=== PATIENT | male | born 1980 ===

== ENCOUNTER 2016-09-28 16:40 | Emergency (ER) | payer OTHER ==
[2016-09-28 16:40] VITALS: BMI 26.4
[2016-09-28 17:01] VITALS: BP 143/85; PULSE 95; RESP 18; TEMP 98.3; O2SAT 99
--- NOTE | 2016-09-28 17:39 | ED PDOC ---
HPI: Abdomen Time Seen by Provider: 09/28/16 17:05 Chief Complaint (Nursing): Abdominal Pain Chief Complaint (Provider): Generalized abdominal pain History Per: Patient History/Exam Limitations: no limitations Onset/Duration Of Symptoms: Days Outside of [place] travel?: No Current Symptoms Are (Timing): Still Present Location Of Pain/Discomfort: Diffuse, RLQ Quality Of Discomfort: Sharp, Burning Associated Symptoms: Nausea, Vomiting. denies: Fever, Chills Exacerbating Factors: None Alleviating Factors: None Last Bowel Movement: Today (Watery, no blood or mucous) Additional Complaint(s): Pt was seen in ER less than a week ago. Labs and CT reviewed and it was normal. Past Medical History Reviewed: Historical Data, Nursing Documentation, Vital Signs Vital Signs: Last Vital Signs Temp 98.3 F 09/28/16 16:58 Pulse 95 H 09/28/16 16:58 Resp 18 09/28/16 16:58 BP 143/85 09/28/16 16:58 Pulse Ox 99 09/28/16 17:40 - Medical History PMH: No Chronic Diseases - Surgical History Surgical History: No Surg Hx - Family History Family History: States: Unknown Family Hx - Living Arrangements Living Arrangements: With Family - Social History Current smoker - smoking cessation education provided: No - Immunization History Hx Tetanus Toxoid Vaccination: No Hx Influenza Vaccination: No Hx Pneumococcal Vaccination: No - Home Medications Home Medications: Ambulatory Orders Medication Instructions Recorded Ibuprofen [Motrin] 600 mg PO TID 7 Days 10/08/15 - Allergies Allergies/Adverse Reactions: Allergies Allergy/AdvReac Type Severity Reaction Status Date / Time No Known Allergies Allergy Verified 10/08/15 11:30 Review of Systems ROS Statement: Except As Marked, All Systems Reviewed And Found Negative Gastrointestinal: Positive for: Nausea, Vomiting, Abdominal Pain Physical Exam - Reviewed Nursing Documentation Reviewed: Yes Vital Signs Reviewed: Yes - Physical Exam Appears: Positive for: Well, Non-toxic, No Acute Distress Head Exam: Positive for: ATRAUMATIC, NORMAL INSPECTION, NORMOCEPHALIC Skin: Positive for: Normal Color, Warm, DRY Eye Exam: Positive for: Normal appearance ENT: Positive for: Normal ENT Inspection Neck: Positive for: Normal, Painless ROM Cardiovascular/Chest: Positive for: Regular Rate, Rhythm Respiratory: Positive for: CNT, Normal Breath Sounds Gastrointestinal/Abdominal: Positive for: Bowel Sounds, Soft, Tenderness ( Diffuse ). Negative for: Normal Exam Back: Positive for: Normal Inspection Extremity: Positive for: Normal ROM Neurologic/Psych: Positive for: Alert, Oriented - Laboratory Results Result Diagrams: 09/28/16 17:36 09/28/16 17:36 - ECG O2 Sat by Pulse Oximetry: 99 Medical Decision Making Medical Decision Making: Endorsed pending abdominal x-ray. Disposition - Clinical Impression Clinical Impression: Abdominal pain - Patient ED Disposition Is Patient to be Admitted: Transfer of Care - Disposition Disposition: Transfer of Care Disposition Time: 19:52 Condition: GOOD
[2016-09-28 17:45] LABS: BASO % 0.3 % (0.0-2.0); EOS % 0.7 % (0.0-4.0); HEMATOCRIT 39.9 % (35.0-51.0); LYMPH # 2.2 K/uL (1.0-4.3); LYMPH % 31.9 % (20.0-40.0); MEAN CELL VOLUME 94.2 fl (80.0-94.0); MEAN PLATELET VOLUME 7.9 fl (7.2-11.7); MONO # 0.6 K/uL (0.0-0.8); NEUT # 4.1 K/uL (1.8-7.0); NEUT % 58.1 % (50.0-75.0); NRBC % 0.1 % (0.0-0.0); RED CELL DISTRIBUTION WIDTH 12.3 % (11.5-14.5)
[2016-09-28 17:49] LABS: ALB/GLOB RATIO 1.4 (1.0-2.1); ALKALINE PHOSPHATASE 53 U/L (38-126); ALT/SGPT 37 U/L (21-72); AST/SGOT 29 U/L (17-59); BILIRUBIN,TOTAL 0.8 mg/dl (0.2-1.3); BLOOD UREA NITROGEN 17 mg/dl (9-20); CALCIUM 9.8 mg/dL (8.4-10.2); CARBON DIOXIDE 25 mmol/L (22-30); CHLORIDE 101 mmol/L (98-107); GFR AFRICAN-AMERICAN > 60; GLUCOSE,RANDOM 91 mg/dL (75-110); LIPASE 47 U/L (23-300); SODIUM 137 mmol/l (132-148); TOTAL PROTEIN 7.8 G/DL (6.3-8.2)
--- NOTE | 2016-09-28 22:47 | ED PDOC ---
- Laboratory Results Result Diagrams: 09/28/16 17:36 09/28/16 17:36 - ECG O2 Sat by Pulse Oximetry: 99 - Progress ED Course And Treament: Case endorsed to racebook writer from Chirag HUERTA pending imaging. Patient educated on findings, discharged with rx Bentyl. Advised follow up PMD/GI. BRAT diet, fluids. Return to ED for worsening/concerning symptoms. Disposition - Clinical Impression Clinical Impression: Abdominal pain - POA Present On Arrival: None - Disposition Referrals: [facility] [Outside] Amish Osullivan MD, PhD [Staff Provider] - Disposition: Routine/Home Disposition Time: 22:46 Condition: GOOD Prescriptions: Dicyclomine [Bentyl] 20 mg PO TID #21 tab Instructions: Abdominal Pain (ED), Acute Diarrhea (ED)
--- NOTE | 2016-09-29 14:08 | RAD ---
HISTORY: Intermittent LUQ pain COMPARISON: No prior. FINDINGS: BOWEL: There are gas-filled bowel loops. There is no evidence of bowel dilatation. BONES: Normal. OTHER FINDINGS: The lungs are well inflated and clear. The heart is normal in size. The hilar and mediastinal configuration is normal. IMPRESSION: Nonspecific bowel gas pattern. Clear lungs.
== END 2016-09-28 22:55 | disposition home or self-care (01) ==
LOC: H.ER 16:40
DX: R10.12 Left upper quadrant pain (principal); R11.2 Nausea with vomiting, unspecified

== ENCOUNTER 2016-10-13 21:04 | Inpatient (IN) | payer OTHER ==
[2016-10-13 21:04] VITALS: BMI 26.4
[2016-10-13] MEDS ORDERED: Iohexol 240 (50 ml) PO ONE (21:50)
[2016-10-13] MEDS ORDERED: Sodium Chloride 0.9% 1,000 ML IV STA (21:51)
[2016-10-13 22:14] LABS: BASO % 0.7 % (0.0-2.0); EOS # 0.1 K/uL (0.0-0.7); EOS % 1.2 % (0.0-4.0); HEMATOCRIT 26.8 % (35.0-51.0); LYMPH # 2.4 K/uL (1.0-4.3); LYMPH % 41.2 % (20.0-40.0); MEAN CELL VOLUME 95.4 fl (80.0-94.0); MEAN CORPUSCULAR HEMOGLOBIN 30.9 pg (27.0-31.0); MEAN CORPUSCULAR HGB CONC 32.4 g/dL (33.0-37.0); MEAN PLATELET VOLUME 7.2 fl (7.2-11.7); MONO # 0.5 K/uL (0.0-0.8); MONO % 7.9 % (0.0-10.0); NEUT # 2.8 K/uL (1.8-7.0); NRBC % 0.1 % (0.0-0.0); RED CELL DISTRIBUTION WIDTH 14.3 % (11.5-14.5); WHITE BLOOD COUNT 5.8 K/uL (4.8-10.8)
[2016-10-13 22:26] LABS: ALB/GLOB RATIO 1.3 (1.0-2.1); ALKALINE PHOSPHATASE 60 U/L (38-126); ALT/SGPT 43 U/L (21-72); AMYLASE 99 U/L (30-110); AST/SGOT 29 U/L (17-59); BILIRUBIN,TOTAL 0.1 mg/dl (0.2-1.3); BLOOD UREA NITROGEN 13 mg/dl (9-20); CALCIUM 9.2 mg/dL (8.4-10.2); CARBON DIOXIDE 27 mmol/L (22-30); CHLORIDE 102 mmol/L (98-107); GFR AFRICAN-AMERICAN > 60; GLUCOSE,RANDOM 83 mg/dL (75-110); LIPASE 162 U/L (23-300); POTASSIUM 4.3 MMOL/L (3.6-5.0); SODIUM 138 mmol/l (132-148); TOTAL PROTEIN 6.9 G/DL (6.3-8.2)
[2016-10-13] MEDS ORDERED: Iohexol 240 (50 ml) ONE (23:00)
--- NOTE | 2016-10-13 23:01 | ED PDOC ---
HPI: Abdomen Time Seen by Provider: 10/13/16 21:29 Chief Complaint (Nursing): Abdominal Pain Chief Complaint (Provider): Abdominal pain History Per: Patient History/Exam Limitations: no limitations Onset/Duration Of Symptoms: Days (21 days) Outside of [place] travel?: No Current Symptoms Are (Timing): Still Present Additional Complaint(s): Mac Lema, a 36 year old male, presents to the ED with abdominal pain which has been ongoing for 3 weeks. The patient states that he was seen at [facility] and then at [place] ED for the same problem. He states that he has been compliant with the medication he was given but the pain still persists. The patient reports that the pain is epigastric but radiates to his entire abdomen and worsens when he eats. He states that he has decreased PO intake and this has caused him to lose alot of weight over the past three weeks. Reports nausea and non blood non bilious non intermittent vomiting. The patient states that earlier he had some bloody stools but that has resolved. He also states that he has been taking bentyl with no relief. Patient reports that he was told to follow up with a bankruptcy attorney but cannot do so due to insurance issues. No PMD. Past Medical History Reviewed: Historical Data, Nursing Documentation, Vital Signs Vital Signs: Last Vital Signs Temp 98.7 F 10/13/16 21:13 Pulse 99 H 10/13/16 21:13 Resp 16 10/13/16 21:13 BP 134/64 10/13/16 21:13 Pulse Ox 100 10/13/16 21:13 - Medical History PMH: No Chronic Diseases - Family History Family History: States: Unknown Family Hx - Social History Current smoker - smoking cessation education provided: Yes Alcohol: Social - Immunization History Hx Tetanus Toxoid Vaccination: No Hx Influenza Vaccination: No Hx Pneumococcal Vaccination: No - Home Medications Home Medications: Ambulatory Orders Medication Instructions Recorded Ibuprofen [Motrin] 600 mg PO TID 7 Days 10/08/15 Dicyclomine [Bentyl] 20 mg PO TID #21 tab 09/28/16 - Allergies Allergies/Adverse Reactions: Allergies Allergy/AdvReac Type Severity Reaction Status Date / Time No Known Allergies Allergy Verified 10/13/16 21:13 Review of Systems Gastrointestinal: Positive for: Nausea, Vomiting (non intermittent non bloody non bilious vomiting.), Abdominal Pain Physical Exam - Physical Exam Appears: Positive for: Uncomfortable, In Acute Distress (Moderate painful distress) Head Exam: Positive for: ATRAUMATIC, NORMOCEPHALIC Skin: Positive for: Normal Color, Warm, Dry Eye Exam: Positive for: Normal appearance, EOMI, PERRL ENT: Positive for: Pharynx Is (Pharynx is clear), Other (Mucous membranes are dry.) Neck: Positive for: Normal, Painless ROM, Supple Cardiovascular/Chest: Positive for: Regular Rate, Rhythm, Chest Non Tender. Negative for: Tachycardia Respiratory: Positive for: Normal Breath Sounds. Negative for: Wheezing, Respiratory Distress Gastrointestinal/Abdominal: Positive for: Bowel Sounds (Hyperactive bowel sounds.), Soft, Tenderness (tenderness to palpation in epigastric and LUQ area.) . Negative for: Mass, Guarding, Rebound Back: Positive for: Normal Inspection Extremity: Positive for: Normal ROM. Negative for: Tenderness, Pedal Edema, Deformity, Swelling Neurologic/Psych: Positive for: Alert, Oriented, Gait - Laboratory Results Result Diagrams: 10/13/16 22:03 10/13/16 22:03 - ECG O2 Sat by Pulse Oximetry: 100 (RA) Pulse Ox Interpretation: Normal Medical Decision Making Medical Decision Makin:29 Initial Impression: 36 year old male presenting with abdominal pain Differential: Colitis, Diverticulitis, Pancreatitis Gastritis PUD Initial Plan: * Type and Screen * ABD Pelvis PO & IV contrast * Amylase * CMP * Creatine Phosphate * Drug Screen * Lactic Acid-Plasma * LDH * Lipase * Udip * CBC * Partial thromboplastin * Prothrombin time * Morphone 2mg IVP * Morphine 4mg IVP * NS 1000mls IV 1000mls/hr * Omnipaque 50ml PO * Pepcid 40mg IV * Zofran 4mg IVP * Admit 21:57 * Reevaluation Reviewed patient's previous chart including scanned report of CT scan done at the [facility]. Patient had non contrast abdominal CT and that was negative. In addition previous lab work and abdomen Xray done in this ER were also within normal limits. Scribe Attestation Documented by Bela Spangler acting as a scribe for Freddy Gaffney MD. Provider Attestation All medical record entries made by the Scribe were at my direction and personally dictated by me. I have reviewed the chart and agree that the record accurately reflects my personal performance of the history, physical exam, medical decision making, and the department course for this patient. I have also personally directed, reviewed, and agree with the discharge instructions and disposition.
[2016-10-13 23:24] LABS: PARTIAL THROMBOPLASTIN TIME 26.6 Seconds (25.6-37.1)
[2016-10-14] MEDS ORDERED: Sodium Chloride 0.9% 50 ML IV ONE (00:42)
[2016-10-14] MEDS ORDERED: Iohexol 300 100 ML IJ ONE (00:42)
--- NOTE | 2016-10-14 01:02 | ED PDOC ---
- Laboratory Results Result Diagrams: 10/13/16 22:03 10/13/16 22:03 - ECG O2 Sat by Pulse Oximetry: 100 (RA) Medical Decision Making Medical Decision Makin Patient endorsed to provider from Dr. Harden pending CT. CT did not show acute findings, however given drop in Hgb and no followup, will admit patient for further workup to avoid worsening anemia. Dr. Marquez aware of patient. Scribe Attestation: Documented by Barbara Harden acting as a scribe for Freddy Gaffney MD. Scribe Attestation: All medical record entries made by the Scribe were at my direction and personally dictated by me. I have reviewed the chart and agree that the record accurately reflects my personal performance of the history, physical exam, medical decision making, and the department course for this patient. I have also personally directed, reviewed, and agree with the discharge instructions and disposition. Disposition - Clinical Impression Clinical Impression: Anemia, Abdominal discomfort - POA Present On Arrival: None - Disposition Disposition: Hospitalized as Observation Patient Disposition Time: 03:00
--- NOTE | 2016-10-14 01:05 | ED PDOC ---
HPI: Abdomen Time Seen by Provider: 10/13/16 21:29 Chief Complaint (Nursing): Abdominal Pain Chief Complaint (Provider): Abdominal pain History Per: Patient History/Exam Limitations: no limitations Onset/Duration Of Symptoms: Days (21 days) Outside of [place] travel?: No Current Symptoms Are (Timing): Still Present Additional Complaint(s): Mac Lema, a 36 year old male, presents to the ED with abdominal pain which has been ongoing for 3 weeks. The patient states that he was seen at [facility] and then at [place] ED for the same problem. He states that he has been compliant with the medication he was given but the pain still persists. The patient reports that the pain is epigastric but radiates to his entire abdomen and worsens when he eats. He states that he has decreased PO intake and this has caused him to lose alot of weight over the past three weeks. Reports nausea and non blood non bilious non intermittent vomiting. The patient states that earlier he had some bloody stools but that has resolved. He also states that he has been taking bentyl with no relief. Patient reports that he was told to follow up with a technical healthcare consultant but cannot do so due to insurance issues. No PMD. Past Medical History Reviewed: Historical Data, Nursing Documentation, Vital Signs Vital Signs: Last Vital Signs Temp 98.1 F 10/16/16 07:49 Pulse 62 10/16/16 07:49 Resp 20 10/16/16 07:49 BP 123/75 10/16/16 07:49 Pulse Ox 99 10/16/16 07:49 - Medical History PMH: No Chronic Diseases - Family History Family History: States: Unknown Family Hx - Social History Current smoker - smoking cessation education provided: Yes Alcohol: Social - Immunization History Hx Tetanus Toxoid Vaccination: No Hx Influenza Vaccination: No Hx Pneumococcal Vaccination: No - Home Medications Home Medications: Ambulatory Orders Medication Instructions Recorded Ferrous Sulfate [Feosol] 325 mg PO TID #60 tab 10/16/16 Folic Acid 1 mg PO DAILY #30 tab 10/16/16 Omeprazole 40 mg PO BID #60 capsule. 10/16/16 - Allergies Allergies/Adverse Reactions: Allergies Allergy/AdvReac Type Severity Reaction Status Date / Time No Known Allergies Allergy Verified 10/13/16 21:13 Review of Systems ROS Statement: Except As Marked, All Systems Reviewed And Found Negative Gastrointestinal: Positive for: Nausea, Vomiting (non intermittent non bloody non bilious vomiting), Abdominal Pain Physical Exam - Reviewed Nursing Documentation Reviewed: Yes Vital Signs Reviewed: Yes - Physical Exam Appears: Positive for: Uncomfortable, In Acute Distress (Moderate painful distress) Head Exam: Positive for: ATRAUMATIC, NORMOCEPHALIC Skin: Positive for: Normal Color, Warm, Dry Eye Exam: Positive for: Normal appearance, EOMI, PERRL ENT: Positive for: Pharynx Is (clear), Other (dry mucous membranes) Neck: Positive for: Normal, Painless ROM, Supple Cardiovascular/Chest: Positive for: Regular Rate, Rhythm, Chest Non Tender. Negative for: Tachycardia Respiratory: Positive for: Normal Breath Sounds. Negative for: Wheezing, Respiratory Distress Gastrointestinal/Abdominal: Positive for: Bowel Sounds (hyperactive), Soft, Tenderness (TTP to epigastric and LUQ ). Negative for: Mass, Guarding, Rebound Back: Positive for: Normal Inspection Extremity: Positive for: Normal ROM. Negative for: Tenderness, Pedal Edema, Deformity, Swelling Neurologic/Psych: Positive for: Alert, Oriented, Gait - Laboratory Results Result Diagrams: 10/16/16 05:30 10/13/16 22:03 - ECG O2 Sat by Pulse Oximetry: 100 (RA) Pulse Ox Interpretation: Normal Medical Decision Making Medical Decision Makin:29 Initial Impression: 36 year old male presenting with abdominal pain Differential: Colitis, Diverticulitis, Pancreatitis Gastritis PUD Initial Plan: Type and Screen ABD Pelvis PO & IV contrast Amylase CMP Creatine Phosphate Drug Screen Lactic Acid-Plasma LDH Lipase Udip CBC Partial thromboplastin Prothrombin time Morphone 2mg IVP Morphine 4mg IVP NS 1000mls IV 1000mls/hr Omnipaque 50ml PO Pepcid 40mg IV Zofran 4mg IVP Admit 21:57 Reevaluation Reviewed patient's previous chart including scanned report of CT scan done at [facility]. Patient had non contrast abdominal CT and that was negative. In addition previous lab work and abdomen Xray done in this ER were also within normal limits. Scribe Attestation Documented by Bela Spangler acting as a scribe for Freddy Gaffney MD. Provider Attestation All medical record entries made by the Scribe were at my direction and personally dictated by me. I have reviewed the chart and agree that the record accurately reflects my personal performance of the history, physical exam, medical decision making, and the department course for this patient. I have also personally directed, reviewed, and agree with the discharge instructions and disposition. Disposition - Clinical Impression Clinical Impression: Anemia, Abdominal discomfort - Disposition Disposition: Transfer of Care Disposition Time: 22:00 Condition: GOOD Patient Signed Over To: Freddy Gaffney Handoff Comments: Pending ER workup and final ER disposition
--- NOTE | 2016-10-14 01:26 | CT ---
EXAM: CT Abdomen and Pelvis With Intravenous Contrast CLINICAL HISTORY: 36 years old, male; Pain; Abdominal pain; Generalized; Additional info: Abd pain TECHNIQUE: Axial computed tomography images of the abdomen and pelvis with intravenous contrast. This CT exam was performed using one or more of the following dose reduction techniques: automated exposure control, adjustment of the mA and/or kV according to patient size, and/or use of iterative reconstruction technique. Coronal and sagittal reformatted images were created and reviewed. CONTRAST: 95 mL of [id number] administered intravenously. EXAM DATE/TIME: 10/13/2016 9:50 PM COMPARISON: CR - ABDOMEN W/ CHEST 09/28/2016 8:51:47 PM FINDINGS: Lower thorax: Heart size is normal. Lung bases are clear ABDOMEN: Liver: unremarkable Gallbladder and bile ducts: unremarkable Pancreas: unremarkable Spleen: unremarkable Adrenals: unremarkable Kidneys and ureters: unremarkable Stomach and bowel: Stomach is incompletely distended which accentuates the gastric wall.Bowel rotation is normal.There is no obstruction. There is fecalization of mid and distal ileum. Appendix is unremarkable. There is moderate stool in the colon. Appendix: See stomach and bowel PELVIS: Bladder: unremarkable Reproductive: Seminal vesicles and prostate are unremarkable. ABDOMEN and PELVIS: Intraperitoneal space: There is no free air or free fluid. Bones/joints: There are no acute osseous abnormalities Soft tissues: unremarkable Vasculature: Vascular structures are unremarkable. Lymph nodes: There is shotty adenopathy. IMPRESSION: No acute solid visceral abnormality; no CT findings of appendicitis; probable constipation
--- NOTE | 2016-10-14 02:26 | CP.PCM.HP ---
History of Present Illness - History of Present Illness History of Present Illness: PCP: None Chief Complaint: Abdominal Pain HPI: 36 years old Male with hx of Gastritis and GERD, Comes with a 3-4 weeks of sharp LLQ abdominal pain, initially beginning with a 4 days of diarrhea. It radiates to the left back and increases in intensity after eating and is associated with nausea and none bloody vomitus. He was seen at [facility] ED 4 weeks ago and the [facility] on 09/28/16, compliant with the prescribed medication, but received minimal relief. He has had an Epigastric pain for months which also worsens with eating causing him not to eat and is loosing weight. he referred Melena when the pain first began , but this has changed back to normal brown colored stool. He has not visited the Practice Nurse because of hot having insurance. PMH: GERD; Gastritis PSH: No surgical history SH: No smoking of cigarettes; Smokes Marijuana; Uses cocaine; alcohol social; live with family FH: Unknown family hx Allergies: NKDA Medication: Present on Admission - Present on Admission Any Indicators Present on Admission: No History of DVT/PE: No History of Uncontrolled Diabetes: No Urinary Catheter: No Decubitus Ulcer Present: No Review of Systems - Constitutional Constitutional: absent: Anorexia, Chills, Fatigue, Fever, Frequent Falls, Headache - EENT Eyes: Requires Corrective Lenses. absent: Diplopia, Floaters, Photophobia, Sees Flashes Ears: absent: Decreased Hearing, Ear Discharge, Ear Pain, Tinnitus Nose/Mouth/Throat: absent: Epistaxis, Nasal Congestion, Nasal Discharge, Sinus Pain, Sinus Pressure - Cardiovascular Cardiovascular: absent: Chest Pain, Dyspnea, Edema - Respiratory Respiratory: absent: Cough, Dyspnea, Wheezing, Stridor - Gastrointestinal Gastrointestinal: Abdominal Pain, Diarrhea, Melena, Nausea, Vomiting - Genitourinary Genitourinary: absent: Dysuria, Flank Pain, Hematuria, Urinary Frequency - Musculoskeletal Musculoskeletal: Back Pain. absent: Muscle Weakness, Myalgias - Integumentary Integumentary: absent: Pruritus, Rash, Skin Ulcer, Sores, Striae, Swelling - Neurological Neurological: absent: Confusion, Focal Weakness, Paresthesias, Sensory Deficit, Weakness - Psychiatric Psychiatric: absent: Anxiety, Depression, Panic Attacks - Endocrine Endocrine: absent: Palpitations, Polydipsia, Polyphagia, Polyuria - Hematologic/Lymphatic Hematologic: absent: Easy Bleeding, Easy Bruising Past Patient History - Past Medical History & Family History Past Medical History?: Yes - Past Social History Smoking Status: Never Smoked Chewing Tobacco Use: No Cigar Use: No Alcohol: Social Drugs: Cannabis, Cocaine, Opiates Home Situation {Lives}: With Family - CARDIAC Hx Cardiac Disorders: No - PULMONARY Hx Respiratory Disorders: No - NEUROLOGICAL Hx Neurological Disorder: No - HEENT Hx HEENT Problems: No - RENAL Hx Chronic Kidney Disease: No - ENDOCRINE/METABOLIC Hx Endocrine Disorders: No - HEMATOLOGICAL/ONCOLOGICAL Hx Blood Disorders: No - INTEGUMENTARY Hx Dermatological Problems: No - MUSCULOSKELETAL/RHEUMATOLOGICAL Hx Musculoskeletal Disorders: No - GASTROINTESTINAL Hx Gastritis: Yes Hx Gastroesophageal Reflux: Yes - GENITOURINARY/GYNECOLOGICAL Hx Genitourinary Disorders: No - PSYCHIATRIC Hx Psychophysiologic Disorder: No Hx Substance Use: No - SURGICAL HISTORY Hx Surgeries: No - ANESTHESIA Hx Anesthesia: No Meds Allergies/Adverse Reactions: Allergies Allergy/AdvReac Type Severity Reaction Status Date / Time No Known Allergies Allergy Verified 10/13/16 21:13 Physical Exam - Constitutional Appears: No Acute Distress - Head Exam Head Exam: ATRAUMATIC, NORMAL INSPECTION - Eye Exam Eye Exam: EOMI, Normal appearance Pupil Exam: NORMAL ACCOMODATION, PERRL - ENT Exam ENT Exam: Mucous Membranes Moist, Normal Exam, Normal External Ear Exam, Normal Oropharynx - Neck Exam Neck exam: Positive for: Full Rom, Normal Inspection. Negative for: Lymphadenopathy, Tenderness - Respiratory Exam Respiratory Exam: Clear to Auscultation Bilateral. absent: Rales, Rhonchi, Wheezes, Stridor - Cardiovascular Exam Cardiovascular Exam: REGULAR RHYTHM, RRR, +S1, +S2. absent: Gallop, JVD - GI/Abdominal Exam Additional comments: Flat, Soft, tender at LLq of deep palpation, Epigastric tenderness on paalpation , No rebound nor guarding. - Rectal Exam Rectal Exam: Deferred - Extremities Exam Extremities exam: Positive for: full ROM, normal inspection. Negative for: calf tenderness, pedal edema, tenderness - Back Exam Back exam: CVA tenderness (L), FULL ROM, NORMAL INSPECTION. absent: CVA tenderness (R) - Neurological Exam Neurological exam: Alert, CN II-XII Intact, Oriented x3, Reflexes Normal - Psychiatric Exam Psychiatric exam: Normal Affect, Normal Mood - Skin Skin Exam: Dry, Intact, Normal Color, Warm Results - Vital Signs Recent Vital Signs: Last Vital Signs Temp 98.7 F 10/13/16 21:13 Pulse 99 H 10/13/16 21:13 Resp 16 10/13/16 21:13 BP 134/64 10/13/16 21:13 Pulse Ox 100 10/14/16 01:08 - Labs Result Diagrams: 10/13/16 22:03 10/13/16 22:03 Labs: Laboratory Results - last 24 hr 10/13/16 10/13/16 10/13/16 22:03 22:03 22:03 WBC 5.8 RBC 2.81 L Hgb 8.7 L D Hct 26.8 L MCV 95.4 H MCH 30.9 MCHC 32.4 L RDW 14.3 Plt Count 295 MPV 7.2 Neut % (Auto) 49.0 L Lymph % (Auto) 41.2 H Pitkin % (Auto) 7.9 Eos % (Auto) 1.2 Baso % (Auto) 0.7 Neut # 2.8 Lymph # 2.4 Pitkin # 0.5 Eos # 0.1 Baso # 0.0 PT INR APTT Sodium 138 Potassium 4.3 Chloride 102 Carbon Dioxide 27 Anion Gap 14 BUN 13 Creatinine 0.9 Est GFR ( Amer) > 60 Est GFR (Non-Af Amer) > 60 Random Glucose 83 Lactic Acid 0.7 Calcium 9.2 Total Bilirubin 0.1 L AST 29 ALT 43 Alkaline Phosphatase 60 Lactate Dehydrogenase 285 L Total Creatine Kinase 117 Total Protein 6.9 Albumin 3.9 Globulin 3.0 Albumin/Globulin Ratio 1.3 Amylase 99 Lipase 162 Urine Opiates Screen Urine Methadone Screen Ur Barbiturates Screen Ur Phencyclidine Scrn Ur Amphetamines Screen U Benzodiazepines Scrn U Oth Cocaine Metabols U Cannabinoids Screen 10/13/16 10/13/16 23:00 23:05 WBC RBC Hgb Hct MCV MCH MCHC RDW Plt Count MPV Neut % (Auto) Lymph % (Auto) Pitkin % (Auto) Eos % (Auto) Baso % (Auto) Neut # Lymph # Pitkin # Eos # Baso # PT 10.9 INR 1.0 APTT 26.6 Sodium Potassium Chloride Carbon Dioxide Anion Gap BUN Creatinine Est GFR ( Amer) Est GFR (Non-Af Amer) Random Glucose Lactic Acid Calcium Total Bilirubin AST ALT Alkaline Phosphatase Lactate Dehydrogenase Total Creatine Kinase Total Protein Albumin Globulin Albumin/Globulin Ratio Amylase Lipase Urine Opiates Screen Positive H Urine Methadone Screen Negative Ur Barbiturates Screen Negative Ur Phencyclidine Scrn Negative Ur Amphetamines Screen Negative U Benzodiazepines Scrn Negative U Oth Cocaine Metabols Positive H U Cannabinoids Screen Positive H - Imaging and Cardiology CT scan - abdomen Status: Report reviewed by me Additional comment: FINDINGS: Lower thorax: Heart size is normal. Lung bases are clear ABDOMEN: Liver: unremarkable Gallbladder and bile ducts: unremarkable Pancreas: unremarkable Spleen: unremarkable Adrenals: unremarkable Kidneys and ureters: unremarkable Stomach and bowel: Stomach is incompletely distended which accentuates the gastric wall.Bowel rotation is normal.There is no obstruction. There is fecalization of mid and distal ileum. Appendix is unremarkable. There is moderate stool in the colon. Appendix: See stomach and bowel PELVIS: Bladder: unremarkable Reproductive: Seminal vesicles and prostate are unremarkable. ABDOMEN and PELVIS: Intraperitoneal space: There is no free air or free fluid. Bones/joints: There are no acute osseous abnormalities Soft tissues: unremarkable Vasculature: Vascular structures are unremarkable. Lymph nodes: There is shotty adenopathy. IMPRESSION: No acute solid visceral abnormality; no CT findings of appendicitis ; probable constipation Assessment & Plan - Assessment and Plan (Free Text) Assessment: #. Abdominal Pain #. GERD #. Gastritis #. Anemia #. Polysubstance abuse Plan: 36 years old Male with hx of Gastritis and GERD, Comes with a 3-4 weeks of sharp LLQ abdominal pain, initially beginning with a 4 days of diarrhea. It radiates to the left back, increases in intensity after eating and is associated with nausea and none bloody vomitus. He referred Melena when the pain first began , but this has changed back to normal brown colored stool. #. Abdominal Pain radiating from the left lower abdomen to the left back with a normal CT abdomen, r/o Diverticulitis , r/o nephrolithiasis, r/o Herpes Zoster( No rashes seen) but most likely abundant stool in colon. - Follow Urinalysis - Consult GI Dr Husain to evaluate patient - NPO except meds - Start Golytely - IV Fluids D5/NS - Morphine for pain #. GERD and Gastritis - GI on consult - Pepcid Q12hrs #. Anemia drop from 14.0 on 09/28/16 to 8.7 on 10/13/16 - Consult ID for Possible endoscopy - Follow Iron panel/Vitamin B12 and folate levels - Follow Hb #. Polysubstance abuse -Ativan for withdrawal #. DVT prophylaxis with SCD #. Code Status:Full - Date & Time Date: 10/14/16 Time: 02:26
[2016-10-14] MEDS: Dextrose 5%/0.9% NS 1,000 ML IV SCH ×3 (04:07→19:50)
[2016-10-14] MEDS ORDERED: Peg-Electrolyte Oral Soln 4L (Golytely) PO ONE ×2 (04:19→11:00)
[2016-10-14 06:39] LABS: HEMATOCRIT 25.3 % (35.0-51.0); MEAN CELL VOLUME 96.1 fl (80.0-94.0); MEAN CORPUSCULAR HEMOGLOBIN 31.3 pg (27.0-31.0); MEAN CORPUSCULAR HGB CONC 32.5 g/dL (33.0-37.0); RED CELL DISTRIBUTION WIDTH 14.5 % (11.5-14.5); WHITE BLOOD COUNT 5.3 K/uL (4.8-10.8)
[2016-10-14 07:27] LABS: IRON 22 ug/dL (49-181)
--- NOTE | 2016-10-14 09:42 | CP.PCM.CON ---
History of Present Illness - History of Present Illness History of Present Illness: CC: Abdominal pain HPI: 36 year old male who presents with abdominal pain. He says the pain started about 2-3 weeks ago, he says that it is left sided, feels like pressure , moderately severe. The pain has been associated with new onset constipation, which has been severe. In addition, he reports an episode of loose BM, which was black/tarry for a while and foul smelling. He says that he has nausea, poor appetite, unintentional weight loss as well. has some burning abdominal discomfort. Mild Nsaid use, but not very regular or heavy. Drinks heavily on weekends, h/o cocaine use in the past, non smoker. No prior surgery. No chest pain or sob. Was in hospital 2 weeks ago with normal hgb, now down to ~8. PMHx: EtOH abuse (binge drinking on weekend) PSHx none FHx father had PUD SHX etoh abuse, h/o cocaine use, non smoker ROS a comprehensive review of systems was performed and was negative apart from HPI Past Patient History - Past Medical History & Family History Past Medical History?: Yes - Past Social History Smoking Status: Never Smoked Chewing Tobacco Use: No Cigar Use: No Alcohol: Social Drugs: Cannabis, Cocaine, Opiates Home Situation {Lives}: With Family - CARDIAC Hx Cardiac Disorders: No - PULMONARY Hx Respiratory Disorders: No - NEUROLOGICAL Hx Neurological Disorder: No - HEENT Hx HEENT Problems: No - RENAL Hx Chronic Kidney Disease: No - ENDOCRINE/METABOLIC Hx Endocrine Disorders: No - HEMATOLOGICAL/ONCOLOGICAL Hx Blood Disorders: No - INTEGUMENTARY Hx Dermatological Problems: No - MUSCULOSKELETAL/RHEUMATOLOGICAL Hx Musculoskeletal Disorders: No - GASTROINTESTINAL Hx Gastritis: Yes Hx Gastroesophageal Reflux: Yes - GENITOURINARY/GYNECOLOGICAL Hx Genitourinary Disorders: No - PSYCHIATRIC Hx Psychophysiologic Disorder: No Hx Substance Use: No - SURGICAL HISTORY Hx Surgeries: No - ANESTHESIA Hx Anesthesia: No Meds Allergies/Adverse Reactions: Allergies Allergy/AdvReac Type Severity Reaction Status Date / Time No Known Allergies Allergy Verified 10/13/16 21:13 - Medications Medications: Current Medications Famotidine (Pepcid) 20 mg IVP Q12 INGRID Last Admin: 10/14/16 09:00 Dose: 20 mg Dextrose/Sodium Chloride (Dextrose 5%/0.9% Ns 1000 Ml) 1,000 mls @ 125 mls/hr IV .Q8H INGRID Stop: 10/15/16 02:58 Last Admin: 10/14/16 04:07 Dose: 125 mls/hr Lorazepam (Ativan) 1 mg IVP Q6 PRN PRN Reason: Agitation Morphine Sulfate (Morphine) 4 mg IVP Q4 PRN PRN Reason: Pain, severe (8-10) Last Admin: 10/14/16 04:26 Dose: 4 mg Morphine Sulfate (Morphine) 2 mg IVP Q4 PRN PRN Reason: Pain, moderate (4-7) Ondansetron HCl (Zofran Inj) 4 mg IVP Q4 PRN PRN Reason: Nausea/Vomiting Physical Exam - Constitutional Appears: Well, No Acute Distress Additional comments: thin - Head Exam Head Exam: ATRAUMATIC, NORMOCEPHALIC - Eye Exam Eye Exam: Normal appearance. absent: Scleral icterus Pupil Exam: PERRL - ENT Exam ENT Exam: Mucous Membranes Moist, Normal Oropharynx - Neck Exam Neck exam: Negative for: Lymphadenopathy, Thyromegaly - Respiratory Exam Respiratory Exam: Clear to Auscultation Bilateral, NORMAL BREATHING PATTERN. absent: Wheezes, Respiratory Distress, Stridor - Cardiovascular Exam Cardiovascular Exam: REGULAR RHYTHM, +S1, +S2 - GI/Abdominal Exam GI & Abdominal Exam: Soft. absent: Distended, Guarding, Tenderness - Extremities Exam Extremities exam: Positive for: normal capillary refill. Negative for: pedal edema - Neurological Exam Neurological exam: Alert, Oriented x3 - Psychiatric Exam Psychiatric exam: Normal Affect, Normal Mood - Skin Skin Exam: Dry, Normal Color, Warm Results - Vital Signs Recent Vital Signs: Last Vital Signs Temp 97.8 F 10/14/16 07:57 Pulse 57 L 10/14/16 07:57 Resp 20 10/14/16 07:57 BP 116/70 10/14/16 07:57 Pulse Ox 98 10/14/16 07:57 - Labs Result Diagrams: 10/14/16 06:29 10/13/16 22:03 Labs: Laboratory Results - last 24 hr 10/13/16 10/13/16 10/13/16 22:03 22:03 22:03 WBC 5.8 RBC 2.81 L Hgb 8.7 L D Hct 26.8 L MCV 95.4 H MCH 30.9 MCHC 32.4 L RDW 14.3 Plt Count 295 MPV 7.2 Neut % (Auto) 49.0 L Lymph % (Auto) 41.2 H Irion % (Auto) 7.9 Eos % (Auto) 1.2 Baso % (Auto) 0.7 Neut # 2.8 Lymph # 2.4 Irion # 0.5 Eos # 0.1 Baso # 0.0 PT INR APTT Sodium 138 Potassium 4.3 Chloride 102 Carbon Dioxide 27 Anion Gap 14 BUN 13 Creatinine 0.9 Est GFR ( Amer) > 60 Est GFR (Non-Af Amer) > 60 Random Glucose 83 Lactic Acid 0.7 Calcium 9.2 Iron TIBC % Saturation Total Bilirubin 0.1 L AST 29 ALT 43 Alkaline Phosphatase 60 Lactate Dehydrogenase 285 L Total Creatine Kinase 117 Total Protein 6.9 Albumin 3.9 Globulin 3.0 Albumin/Globulin Ratio 1.3 Amylase 99 Lipase 162 Vitamin B12 Urine Opiates Screen Urine Methadone Screen Ur Barbiturates Screen Ur Phencyclidine Scrn Ur Amphetamines Screen U Benzodiazepines Scrn U Oth Cocaine Metabols U Cannabinoids Screen Blood Type Antibody Screen BBK History Checked 10/13/16 10/13/16 10/13/16 22:50 23:00 23:05 WBC RBC Hgb Hct MCV MCH MCHC RDW Plt Count MPV Neut % (Auto) Lymph % (Auto) Irion % (Auto) Eos % (Auto) Baso % (Auto) Neut # Lymph # Irion # Eos # Baso # PT 10.9 INR 1.0 APTT 26.6 Sodium Potassium Chloride Carbon Dioxide Anion Gap BUN Creatinine Est GFR ( Amer) Est GFR (Non-Af Amer) Random Glucose Lactic Acid Calcium Iron TIBC % Saturation Total Bilirubin AST ALT Alkaline Phosphatase Lactate Dehydrogenase Total Creatine Kinase Total Protein Albumin Globulin Albumin/Globulin Ratio Amylase Lipase Vitamin B12 Urine Opiates Screen Positive H Urine Methadone Screen Negative Ur Barbiturates Screen Negative Ur Phencyclidine Scrn Negative Ur Amphetamines Screen Negative U Benzodiazepines Scrn Negative U Oth Cocaine Metabols Positive H U Cannabinoids Screen Positive H Blood Type B POSITIVE Antibody Screen Negative BBK History Checked No verified bt 10/14/16 10/14/16 10/14/16 06:29 06:29 06:29 WBC 5.3 RBC 2.64 L Hgb 8.2 L Hct 25.3 L MCV 96.1 H MCH 31.3 H MCHC 32.5 L RDW 14.5 Plt Count 256 MPV Neut % (Auto) Lymph % (Auto) Irion % (Auto) Eos % (Auto) Baso % (Auto) Neut # Lymph # Irion # Eos # Baso # PT INR APTT Sodium Potassium Chloride Carbon Dioxide Anion Gap BUN Creatinine Est GFR ( Amer) Est GFR (Non-Af Amer) Random Glucose Lactic Acid Calcium Iron 22 L TIBC 288 % Saturation 8 L Total Bilirubin AST ALT Alkaline Phosphatase Lactate Dehydrogenase Total Creatine Kinase Total Protein Albumin Globulin Albumin/Globulin Ratio Amylase Lipase Vitamin B12 366 Urine Opiates Screen Urine Methadone Screen Ur Barbiturates Screen Ur Phencyclidine Scrn Ur Amphetamines Screen U Benzodiazepines Scrn U Oth Cocaine Metabols U Cannabinoids Screen Blood Type Antibody Screen BBK History Checked Assessment & Plan - Assessment and Plan (Free Text) Assessment: 36 year old male who presents with abdominal pain, constipation, recent melena, h/o etoh abuse, and anemia, likely iron deficient. 1. Anemia 2. Abdominal pain 3. Constipation Plan: -check ferritin -CT scan reviewed -recommend EGD/Colonoscopy tomorrow for further evaluation -ddx includes PUD, CRC -golytely 4 liters today -clear liquid diet -npo after mn -protonix empirically - Date & Time Date: 10/14/16 Time: 09:42
[2016-10-14 10:41] LABS: RBC URINE 1 /hpf (0-3); URINE BILIRUBIN NEGATIVE (NEGATIVE); URINE BLOOD NEGATIVE (NEGATIVE); URINE COLOR STRAW (YELLOW); URINE GLUCOSE (UA) NEG (Normal); URINE KETONE NEGATIVE (NEGATIVE); URINE LEUKOCYTE ESTERASE NEG Leu/uL (Negative); URINE PROTEIN NEGATIVE (NEGATIVE); URINE UROBILINOGEN 0.2-1.0 mg/dL (0.2-1.0); WBC URINE < 1 /hpf (0-5)
--- NOTE | 2016-10-14 11:03 | CP.PCM.PN ---
Subjective - Date & Time of Evaluation Date of Evaluation: 10/14/16 Time of Evaluation: 10:00 - Subjective Subjective: Patient seen and examined. Presently pain free but claimed pain with the same intensity comes and go. Objective - Vital Signs/Intake and Output Vital Signs (last 24 hours): Temp Pulse Resp BP Pulse Ox 97.8 F 57 L 20 116/70 98 10/14/16 07:57 10/14/16 07:57 10/14/16 07:57 10/14/16 07:57 10/14/16 07:57 - Medications Medications: Current Medications Dextrose/Sodium Chloride (Dextrose 5%/0.9% Ns 1000 Ml) 1,000 mls @ 125 mls/hr IV .Q8H [facility] Stop: 10/15/16 02:58 Last Admin: 10/14/16 04:07 Dose: 125 mls/hr Lorazepam (Ativan) 1 mg IVP Q6 PRN PRN Reason: Agitation Morphine Sulfate (Morphine) 4 mg IVP Q4 PRN PRN Reason: Pain, severe (8-10) Last Admin: 10/14/16 04:26 Dose: 4 mg Morphine Sulfate (Morphine) 2 mg IVP Q4 PRN PRN Reason: Pain, moderate (4-7) Ondansetron HCl (Zofran Inj) 4 mg IVP Q4 PRN PRN Reason: Nausea/Vomiting Pantoprazole Sodium (Protonix Inj) 40 mg IVP BID INGRID - Labs Labs: 10/14/16 06:29 10/13/16 22:03 PT 10.9 Seconds (9.8-13.1) 10/13/16 23:05 INR 1.0 (0.9-1.2) 10/13/16 23:05 APTT 26.6 Seconds (25.6-37.1) 10/13/16 23:05 - Constitutional Appears: No Acute Distress - Head Exam Head Exam: ATRAUMATIC - Eye Exam Eye Exam: Normal appearance - ENT Exam ENT Exam: Mucous Membranes Moist - Neck Exam Neck Exam: absent: Meningismus - Respiratory Exam Respiratory Exam: NORMAL BREATHING PATTERN. absent: Rhonchi, Wheezes - Cardiovascular Exam Cardiovascular Exam: REGULAR RHYTHM, +S1, +S2 - GI/Abdominal Exam GI & Abdominal Exam: Soft. absent: Tenderness - Rectal Exam Rectal Exam: Deferred - Extremities Exam Extremities Exam: absent: Calf Tenderness - Back Exam Back Exam: absent: tenderness - Neurological Exam Neurological Exam: Alert, Oriented x3 - Psychiatric Exam Psychiatric exam: Normal Affect - Skin Skin Exam: Dry, Intact Assessment and Plan (1) Abdominal pain Status: Acute (2) Anemia Status: Acute (3) Polysubstance abuse Status: Acute - Assessment and Plan (Free Text) Assessment: 36 yo male with history of Gastritis and GERD admitted because of mid and LUQ pain radiating to the back, on and off, accompanied with diarrhea, nausea and vomiting since 4 days ago. Admitted having melena the first day. 1. Abdominal Pain presently pain free since this morning but claimed his pain was on and off Dr Husain on GI consult and recommended scoping for tomorrow on clear liquid diet and tolerating NPO from midnight continue Golytely Protonix 40mg IV q 12hrs 2. Anemia Hgb drop from 14.0 on 09/28/16 to 8.2 today pt to be scoped tomorrow 3. Polysubstance abuse Ativan 1mg IV q 4hrs prn for withdrawal symptoms
[2016-10-14 13:32] LABS: FOLATE 3.7 ng/mL
[2016-10-15 06:52] LABS: HEMATOCRIT 22.8 % (35.0-51.0); MEAN CELL VOLUME 94.9 fl (80.0-94.0); MEAN CORPUSCULAR HEMOGLOBIN 31.5 pg (27.0-31.0); MEAN CORPUSCULAR HGB CONC 33.2 g/dL (33.0-37.0); RED CELL DISTRIBUTION WIDTH 14.5 % (11.5-14.5); WHITE BLOOD COUNT 3.7 K/uL (4.8-10.8)
[2016-10-15] MEDS ORDERED: Lactated Ringer's 500 ML IV ONE (11:29)
[2016-10-15] MEDS ORDERED: Propofol 10 mg/ml Inj (20 ML) ONE (11:53)
--- NOTE | 2016-10-15 13:24 | CARD ---
APPROVED REPORT EKG Measurement Heart [id number] <Conclusion> Sinus bradycardia with sinus arrhythmia ST elevation, probably due to early repolarization
--- NOTE | 2016-10-15 14:55 | CP.PCM.PN ---
Subjective - Date & Time of Evaluation Date of Evaluation: 10/15/16 Time of Evaluation: 14:00 - Subjective Subjective: Pt seen and examined. Denied any abdominal pain. Patient just came back from endoscopy/colonoscopy. Objective - Vital Signs/Intake and Output Vital Signs (last 24 hours): Temp Pulse Resp BP Pulse Ox 97 F L 59 L 17 119/64 100 10/15/16 12:47 10/15/16 12:47 10/15/16 12:47 10/15/16 12:47 10/15/16 12:47 Intake and Output: 10/15/16 10/15/16 06:59 18:59 Intake Total 200 Balance 200 - Medications Medications: Current Medications Lorazepam (Ativan) 1 mg IVP Q6 PRN PRN Reason: Agitation Morphine Sulfate (Morphine) 4 mg IVP Q4 PRN PRN Reason: Pain, severe (8-10) Last Admin: 10/15/16 08:39 Dose: 4 mg Morphine Sulfate (Morphine) 2 mg IVP Q4 PRN PRN Reason: Pain, moderate (4-7) Last Admin: 10/15/16 00:04 Dose: 2 mg Ondansetron HCl (Zofran Inj) 4 mg IVP Q4 PRN PRN Reason: Nausea/Vomiting Pantoprazole Sodium (Protonix Inj) 40 mg IVP BID INGRID Last Admin: 10/15/16 10:08 Dose: 40 mg - Labs Labs: 10/15/16 05:30 PT 10.9 Seconds (9.8-13.1) 10/13/16 23:05 INR 1.0 (0.9-1.2) 10/13/16 23:05 APTT 26.6 Seconds (25.6-37.1) 10/13/16 23:05 - Constitutional Appears: No Acute Distress - Head Exam Head Exam: ATRAUMATIC - Eye Exam Eye Exam: absent: Scleral icterus - ENT Exam ENT Exam: Mucous Membranes Moist - Neck Exam Neck Exam: absent: Meningismus - Respiratory Exam Respiratory Exam: absent: Rhonchi, Wheezes, Respiratory Distress - Cardiovascular Exam Cardiovascular Exam: REGULAR RHYTHM, +S1, +S2 - GI/Abdominal Exam GI & Abdominal Exam: Soft. absent: Tenderness - Rectal Exam Rectal Exam: Deferred - Extremities Exam Extremities Exam: absent: Pedal Edema - Back Exam Back Exam: NORMAL INSPECTION - Neurological Exam Neurological Exam: Alert, Oriented x3 - Psychiatric Exam Psychiatric exam: Normal Affect - Skin Skin Exam: Dry, Intact Assessment and Plan (1) Abdominal pain Status: Acute (2) Anemia Status: Acute (3) Polysubstance abuse Status: Acute - Assessment and Plan (Free Text) Assessment: 36 yo male with history of Gastritis and GERD admitted because of mid and LUQ pain radiating to the back, on and off, accompanied with diarrhea, nausea and vomiting since 4 days ago. Admitted having melena the first day. 1. Abdominal Pain Dr Husain performed endoscopy and colonoscopy on patient today which were tolerated Endoscopy showed multiple non-bleeding erosions on the entire stomach; ulcer oozing with blood on duodenal bulb surrounded with severe edema Colonoscopy only showed non-bleeding hemorrhoid continue Protonix 40mg IV q 12hrs 2. Anemia Hgb dropped further to 7.6 transfused 2 units of PRBC repeat CBC in am anemia secondary to bleeding ulcer 3. Polysubstance abuse Ativan 1mg IV q 4hrs prn for withdrawal symptoms
[2016-10-16 00:43] VITALS: RESP 20
[2016-10-16 07:01] LABS: HEMATOCRIT 32.7 % (35.0-51.0); MEAN CORPUSCULAR HEMOGLOBIN 31.5 pg (27.0-31.0); MEAN CORPUSCULAR HGB CONC 33.5 g/dL (33.0-37.0); RED CELL DISTRIBUTION WIDTH 14.5 % (11.5-14.5)
[2016-10-16 07:50] VITALS: BP 123/75; PULSE 62; TEMP 98.1
--- NOTE | 2016-10-16 08:56 | CP.PCM.PN ---
Subjective - Date & Time of Evaluation Date of Evaluation: 10/16/16 Time of Evaluation: 08:00 - Subjective Subjective: Patient seen at bedside this am. No overnight complains. s/p 2 u PRBC yesterday. s/p EGD and colonoscopy yesterday- please see full report in chart. Edematous pre pylorus and large deep cratered ulcer in duodenal bulb which was semi circumferential. Biopsy taken to rule out malignancy. Patient tolerated full liquid diet and denies nausea, vomiting Objective - Vital Signs/Intake and Output Vital Signs (last 24 hours): Temp Pulse Resp BP Pulse Ox 98.1 F 62 20 123/75 99 10/16/16 07:49 10/16/16 07:49 10/16/16 07:49 10/16/16 07:49 10/16/16 07:49 - Medications Medications: Current Medications Cyanocobalamin (Vitamin B12 1000 Mcg/Ml Inj) 1,000 mcg IM ONCE ONE Stop: 10/16/16 08:05 Ferrous Sulfate (Feosol) 325 mg PO TID [facility] Folic Acid (Folic Acid) 1 mg PO DAILY [facility] Lorazepam (Ativan) 1 mg IVP Q6 PRN PRN Reason: Agitation Morphine Sulfate (Morphine) 4 mg IVP Q4 PRN PRN Reason: Pain, severe (8-10) Last Admin: 10/16/16 05:07 Dose: 4 mg Morphine Sulfate (Morphine) 2 mg IVP Q4 PRN PRN Reason: Pain, moderate (4-7) Last Admin: 10/16/16 08:07 Dose: 2 mg Ondansetron HCl (Zofran Inj) 4 mg IVP Q4 PRN PRN Reason: Nausea/Vomiting Pantoprazole Sodium (Protonix Inj) 40 mg IVP BID [facility] Last Admin: 10/16/16 08:08 Dose: 40 mg - Labs Labs: 10/16/16 05:30 PT 10.9 Seconds (9.8-13.1) 10/13/16 23:05 INR 1.0 (0.9-1.2) 10/13/16 23:05 APTT 26.6 Seconds (25.6-37.1) 10/13/16 23:05 - Constitutional Appears: Well - Head Exam Head Exam: ATRAUMATIC, NORMAL INSPECTION, NORMOCEPHALIC - Respiratory Exam Respiratory Exam: Clear to Ausculation Bilateral, NORMAL BREATHING PATTERN - Cardiovascular Exam Cardiovascular Exam: REGULAR RHYTHM, +S1, +S2. absent: Murmur - GI/Abdominal Exam GI & Abdominal Exam: Soft, Normal Bowel Sounds. absent: Tenderness - Extremities Exam Extremities Exam: Full ROM, Normal Capillary Refill, Normal Inspection. absent : Joint Swelling, Pedal Edema - Neurological Exam Neurological Exam: Alert, Awake, CN II-XII Intact, Normal Gait, Oriented x3 - Psychiatric Exam Psychiatric exam: Normal Affect, Normal Mood - Skin Skin Exam: Dry, Intact, Normal Color, Warm Assessment and Plan - Assessment and Plan (Free Text) Assessment: 36 yr old M admitted with Gi bleeding and anemia s/p EGd showing cratered deep ulcer in duodenal bulb with slight oozing and edematous pre pylorus. Colonoscopy was unremarkable till terminal ileum. Please see full report in chart. H/Hct stable after transfusion. No more bleeding episodes. Plan: - Full diet today as tolerated - Omeprazole 40 mg po bid x 3 months - [facility] 2 weeks for follow up of biopsy - Avoid NSAID/ ASA/ narcotic - Needs repeat EGD in 3 months biopsy dependent - Can be discharged from GI perspective
--- NOTE | 2016-10-16 12:46 | CP.PCM.DIS ---
Provider - Provider Date of Admission: 10/14/16 11:00 Attending physician: Rickie Marquez Consults: GI : Dr Husain Time Spent in preparation of Discharge (in minutes): 30 Diagnosis - Discharge Diagnosis (1) Upper GI bleed Status: Acute (2) Acute blood loss anemia Status: Acute (3) Duodenal ulcer with hemorrhage Status: Acute Hospital Course - Lab Results Lab Results: Most Recent Lab Values WBC 6.0 K/uL (4.8-10.8) D 10/16/16 05:30 RBC 3.48 Mil/uL (4.40-5.90) L 10/16/16 05:30 Hgb 11.0 g/dL (12.0-18.0) L D 10/16/16 05:30 Hct 32.7 % (35.0-51.0) L 10/16/16 05:30 MCV 94.0 fl (80.0-94.0) 10/16/16 05:30 MCH 31.5 pg (27.0-31.0) H 10/16/16 05:30 MCHC 33.5 g/dL (33.0-37.0) 10/16/16 05:30 RDW 14.5 % (11.5-14.5) 10/16/16 05:30 Plt Count 245 K/uL (130-400) 10/16/16 05:30 MPV 7.2 fl (7.2-11.7) 10/13/16 22:03 Neut % (Auto) 49.0 % (50.0-75.0) L 10/13/16 22:03 Lymph % (Auto) 41.2 % (20.0-40.0) H 10/13/16 22:03 [place] % (Auto) 7.9 % (0.0-10.0) 10/13/16 22:03 Eos % (Auto) 1.2 % (0.0-4.0) 10/13/16 22:03 Baso % (Auto) 0.7 % (0.0-2.0) 10/13/16 22:03 Neut # 2.8 K/uL (1.8-7.0) 10/13/16 22:03 Lymph # 2.4 K/uL (1.0-4.3) 10/13/16 22:03 [place] # 0.5 K/uL (0.0-0.8) 10/13/16 22:03 Eos # 0.1 K/uL (0.0-0.7) 10/13/16 22:03 Baso # 0.0 K/uL (0.0-0.2) 10/13/16 22:03 PT 10.9 Seconds (9.8-13.1) 10/13/16 23:05 INR 1.0 (0.9-1.2) 10/13/16 23:05 APTT 26.6 Seconds (25.6-37.1) 10/13/16 23:05 Sodium 138 mmol/l (132-148) 10/13/16 22:03 Potassium 4.3 MMOL/L (3.6-5.0) 10/13/16 22:03 Chloride 102 mmol/L (98-107) 10/13/16 22:03 Carbon Dioxide 27 mmol/L (22-30) 10/13/16 22:03 Anion Gap 14 (10-20) 10/13/16 22:03 BUN 13 mg/dl (9-20) 10/13/16 22:03 Creatinine 0.9 mg/dL (0.8-1.5) 10/13/16 22:03 Est GFR ( Amer) > 60 10/13/16 22:03 Est GFR (Non-Af Amer) > 60 10/13/16 22:03 Random Glucose 83 mg/dL (75-110) 10/13/16 22:03 Lactic Acid 0.7 MMOL/L (0.7-2.1) 10/13/16 22:03 Calcium 9.2 mg/dL (8.4-10.2) 10/13/16 22:03 Iron 22 ug/dL (49-181) L 10/14/16 06:29 TIBC 288 ug/dL (250-450) 10/14/16 06:29 % Saturation 8 % (20-55) L 10/14/16 06:29 Ferritin 9.9 ng/mL 10/14/16 09:05 Total Bilirubin 0.1 mg/dl (0.2-1.3) L 10/13/16 22:03 AST 29 U/L (17-59) 10/13/16 22:03 ALT 43 U/L (21-72) 10/13/16 22:03 Alkaline Phosphatase 60 U/L (38-126) 10/13/16 22:03 Lactate Dehydrogenase 285 U/L (313-618) L 10/13/16 22:03 Total Creatine Kinase 117 U/L (55-170) 10/13/16 22:03 Total Protein 6.9 G/DL (6.3-8.2) 10/13/16 22:03 Albumin 3.9 g/dL (3.5-5.0) 10/13/16 22:03 Globulin 3.0 gm/dL (2.2-3.9) 10/13/16 22:03 Albumin/Globulin Ratio 1.3 (1.0-2.1) 10/13/16 22:03 Amylase 99 U/L (30-110) 10/13/16 22:03 Lipase 162 U/L (23-300) 10/13/16 22:03 Vitamin B12 366 pg/mL (239-931) 10/14/16 06:29 Folate 3.7 ng/mL 10/14/16 06:29 Urine Color Straw (YELLOW) 10/14/16 10:25 Urine Clarity Clear (Clear) 10/14/16 10:25 Urine pH 7.0 (5.0-8.0) 10/14/16 10:25 Ur Specific [place] 1.020 (1.003-1.030) 10/14/16 10:25 Urine Protein Negative mg/dL (NEGATIVE) 10/14/16 10:25 Urine Glucose (UA) Neg mg/dL (Normal) 10/14/16 10:25 Urine Ketones Negative mg/dL (NEGATIVE) 10/14/16 10:25 Urine Blood Negative (NEGATIVE) 10/14/16 10:25 Urine Nitrate Negative (NEGATIVE) 10/14/16 10:25 Urine Bilirubin Negative (NEGATIVE) 10/14/16 10:25 Urine Urobilinogen 0.2-1.0 mg/dL (0.2-1.0) 10/14/16 10:25 Ur Leukocyte Esterase Neg [place]/uL (Negative) 10/14/16 10:25 Urine RBC (Auto) 1 /hpf (0-3) 10/14/16 10:25 Urine Microscopic WBC < 1 /hpf (0-5) 10/14/16 10:25 Stool Occult Blood Negative (NEGATIVE) 10/14/16 16:47 Urine Opiates Screen Positive (NEGATIVE) H 10/13/16 23:00 Urine Methadone Screen Negative (NEGATIVE) 10/13/16 23:00 Ur Barbiturates Screen Negative (NEGATIVE) 10/13/16 23:00 Ur Phencyclidine Scrn Negative (NEGATIVE) 10/13/16 23:00 Ur Amphetamines Screen Negative (NEGATIVE) 10/13/16 23:00 U Benzodiazepines Scrn Negative (NEGATIVE) 10/13/16 23:00 U Oth Cocaine Metabols Positive (NEGATIVE) H 10/13/16 23:00 U Cannabinoids Screen Positive (NEGATIVE) H 10/13/16 23:00 Blood Type B POSITIVE 10/13/16 22:50 Blood Type Confirm B POSITIVE 10/14/16 09:15 Antibody Screen Negative 10/13/16 22:50 Crossmatch See Detail 10/13/16 22:50 BBK History Checked No verified bt 10/13/16 22:50 - Hospital Course Hospital Course: 36 years old Male with hx of Gastritis and GERD, came with a 3-4 weeks of sharp LUQ abdominal pain radiating to the left back and increases in intensity after eating and is associated with nausea and none bloody vomitus. Had an episode of melena w/c resolved prior to admission. Initial Hgb was 8.2 w/c further dropped to 7.6. Pt was admitted and started on Protonix drip. He was transfused 2 units PRBC. GI was consulted and pt underwent EGD w/c showed Duodenal Ulcer w/ slight oozing. Pt was continued to be monitored in the hospital - no further bleeding , no melena nor hematemesis. H/H remained stable. hgb now 11. Cleared by GI for discharge. Pt to have rpt EGD in 3 mos. Needs to ff up Biopsy result in [address] Husain's office No ASA, no NSAIDs, no narcotics nor ETOH Discharge Exam - Head Exam Head Exam: ATRAUMATIC, NORMAL INSPECTION, NORMOCEPHALIC - Eye Exam Eye Exam: EOMI, Normal appearance, PERRL Pupil Exam: NORMAL ACCOMODATION - ENT Exam ENT Exam: Mucous Membranes Moist, Normal External Ear Exam - Neck Exam Neck exam: Full Rom - Respiratory Exam Respiratory Exam: NORMAL BREATHING PATTERN. absent: Respiratory Distress - Cardiovascular Exam Cardiovascular Exam: REGULAR RHYTHM, +S1, +S2 - GI/Abdominal Exam GI & Abdominal Exam: Normal Bowel Sounds, Soft. absent: Tenderness - Back Exam Back exam: FULL ROM, NORMAL INSPECTION. absent: CVA tenderness (L), CVA tenderness (R), paraspinal tenderness - Neurological Exam Neurological exam: Alert, CN II-XII Intact, Normal Gait, Oriented x3, Reflexes Normal - Psychiatric Exam Psychiatric exam: Normal Affect, Normal Mood - Skin Skin Exam: Dry, Intact, Normal Color, Warm Discharge Plan - Discharge Medications Prescriptions: Ferrous Sulfate [Feosol] 325 mg PO TID #60 tab Folic Acid 1 mg PO DAILY #30 tab Omeprazole 40 mg PO BID #60 capsule. - Follow Up Plan Condition: GOOD Disposition: HOME/ ROUTINE Instructions: Peptic Ulcer (DC) Additional Instructions: appt with Dr Husain in 2 wks , #5 , #5 Clinic appt in 1 [phone], #5, #2 need to repeat EGD in 3 mos cont Omeprazole BID x 3 mos No ASA, No NSAIDS, no narcotis No Alcohol
[2016-10-19 16:43] VITALS: O2SAT 100
== END 2016-10-16 15:50 | disposition home or self-care (01) | DRG 174 ==
LOC: H.ER 21:04 → H.EROBSV 21:57 → H.ERHOLD 10-14 02:12 → H.MEDSURG1 10-14 03:53 → OBSVTOIN 10-14 11:00
PROVIDERS: ADMIT Internal Medicine; ATTEND Internal Medicine
PROC: 0DBC8ZX Excision of Ileocecal Valve, Via Natural or Artificial Opening Endoscopic, Diagnostic (ICD-10-PCS; 2016-10-15)
PROC: 30233N1 Transfusion of Nonautologous Red Blood Cells into Peripheral Vein, Percutaneous Approach (ICD-10-PCS; 2016-10-15)
PROC: 0DB98ZX Excision of Duodenum, Via Natural or Artificial Opening Endoscopic, Diagnostic (ICD-10-PCS; principal; 2016-10-15 13:45)
PROC: 0DBH8ZX Excision of Cecum, Via Natural or Artificial Opening Endoscopic, Diagnostic (ICD-10-PCS; 2016-10-15 13:45)
DX: K26.4 Chronic or unspecified duodenal ulcer with hemorrhage (principal); F14.10 Cocaine abuse, uncomplicated; D62 Acute posthemorrhagic anemia; K64.8 Other hemorrhoids; D50.0 Iron deficiency anemia secondary to blood loss (chronic); F12.10 Cannabis abuse, uncomplicated; K21.9 Gastro-esophageal reflux disease without esophagitis; K29.70 Gastritis, unspecified, without bleeding; K59.00 Constipation, unspecified